=== PATIENT | female | born 1985 | race Caucasian/White ===

== ENCOUNTER 2019-03-06 08:33 | Emergency (ER) | payer OTHER ==
[~2019-03-06] VITALS: Ht 180.3 cm; Wt 97.5 kg
== END 2019-03-06 09:18 | disposition home or self-care (01) ==
LOC: ED 08:33
DX: S67.193A Crushing injury of left middle finger, initial encounter (principal); W23.0XXA Caught, crushed, jammed, or pinched between moving objects, initial encounter; F17.200 Nicotine dependence, unspecified, uncomplicated
CPT/HCPCS: 73140; 99283; A9270

== ENCOUNTER 2022-11-06 20:23 | Emergency (ER) | payer OTHER ==
[~2022-11-06] VITALS: Ht 180.3 cm; Wt 95.2 kg
[2022-11-06] MEDS ORDERED: BUPRENORPHIN-N1 EACH SL (20:55)
[2022-11-06 21:42] VITALS: BP 127/75
== END 2022-11-06 21:46 | disposition home or self-care (01) ==
LOC: ED 20:23
DX: Z76.0 Encounter for issue of repeat prescription (principal); F17.200 Nicotine dependence, unspecified, uncomplicated
CPT/HCPCS: 99281

== ENCOUNTER 2023-04-17 11:24 | Emergency (ER) | payer OTHER ==
[~2023-04-17] VITALS: Ht 180.3 cm; Wt 81.7 kg
[~2023-04-17 11:24] MED LIST: BUPRENORPHIN-N1 EACH SL
[2023-04-17] MEDS ORDERED: VENTOLIN HFA18 GM INH (11:33)
[2023-04-17 12:43] VITALS: BP 104/57
== END 2023-04-17 12:44 | disposition home or self-care (01) ==
LOC: ED 11:24
DX: S93.402A Sprain of unspecified ligament of left ankle, initial encounter (principal); F17.200 Nicotine dependence, unspecified, uncomplicated; W10.9XXA Fall (on) (from) unspecified stairs and steps, initial encounter
CPT/HCPCS: 73610; 73630; 99283-25; A9270

== ENCOUNTER 2024-11-12 17:28 | Emergency (ER) | payer MEDICAID ==
[~2024-11-12] VITALS: Ht 180.3 cm; Wt 87.3 kg
[~2024-11-12 17:28] MED LIST changes: +VENTOLIN HFA18 GM INH
--- OUTSIDE RECORDS SUMMARY | 2024-11-12 17:35 | XMS ---
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 PHONE: Unknown NICOLE LOVELL [employer] [facility] PHONE: [phone] Helio has no Care Guidelines for this patient. [facility] VISIT COUNT (12 MO.) 2 L[facility] Barr TOTAL 2 NOTE: Visits indicate total known visits. ED/UCC VISIT TRACKING (12 MO.) 11/12/2024 17:29 [facility] TYPE: Emergency COMPLAINT: - HEAD INJURY 07/22/2024 19:22 [facility] [place] TYPE: Emergency COMPLAINT: - ARM PAIN INPATIENT VISIT TRACKING (12 MO.) No inpatient visits to display in this time frame [email or web address]
[2024-11-12 19:22] VITALS: BP 122/72
== END 2024-11-12 19:32 | disposition home or self-care (01) ==
LOC: ED 17:28
DX: S01.81XA Laceration without foreign body of other part of head, initial encounter (principal); F17.200 Nicotine dependence, unspecified, uncomplicated; X58.XXXA Exposure to other specified factors, initial encounter
CPT/HCPCS: 12011; 99282